=== PATIENT | female | born 1980 | race Caucasian/White ===

== ENCOUNTER → 2017-01-14 | Outpatient (CLI) | payer MEDICAID ==
[2017-01-14 15:46] LABS: Basophils % (A) 0 %; CH 31.2; CHCM 34.5; Eosinophils # (A) 0.1 k/uL (0-0.7); Eosinophils % (A) 1 %; HCT 40.1 % (34.0-46.0); HDW 2.68; HGB 13.3 gm/dL (11.4-16.0); Luc # (Auto) 0.18; Luc % (Auto) 2; Lymphocytes # (A) 1.8 k/uL (1.0-4.8); Lymphocytes % (A) 23 %; MCH 30.2 pg (25.0-35.0); MCHC 33.2 g/dL (31.0-37.0); Monocytes # (A) 0.4 k/uL (0-1.0); Monocytes % (A) 5 %; Neutrophils # (A) 5.4 k/uL (1.3-7.7); Neutrophils % (A) 69 %; RBC 4.41 m/uL (3.80-5.40); RDW 13.3 % (11.5-15.5); WBC 7.8 k/uL (3.8-10.6); WBC (Perox) 8.35
[2017-01-14 18:39] LABS: Erythrocyte Sedimentation Rate 8 mm/hr (0-20)
[2017-01-15 10:32] LABS: T4, Total 6.2 ug/dL (4.5 - 10.9)
== END | disposition home or self-care (01) ==
LOC: LABWHC1 15:25
PROVIDERS: ATTEND Allergy & Immunology
DX: L50.8 Other urticaria (principal)
CPT/HCPCS: 36415; 84436; 84439; 84443; 85025; 85652; 86162; 86376; 86800

== ENCOUNTER → 2017-01-24 | Outpatient (CLI) | payer MEDICAID | END | disposition home or self-care (01) | LOC: LABWHC1 07:58 | PROVIDERS: ATTEND Allergy & Immunology | DX: Z53.9 Procedure and treatment not carried out, unspecified reason (principal) ==

== ENCOUNTER → 2017-01-24 | Outpatient (CLI) | payer MEDICAID ==
--- NOTE | 2017-01-24 08:07 | US ---
EXAMINATION TYPE: US thyroid st tissue head/neck DATE OF EXAM: 01/24/2017 COMPARISON: NONE CLINICAL HISTORY: E04.9 Goiter. Patient stated was told by doctor is in early stage of Vanesa's T hyroiditis; hives x 1 year. GLAND SIZE: Right Lobe: 5.6 x 1.8 x 1.6 cm Overall Parenchyma: homogenous Left Lobe: 4.9 x 1.6 x 1.6 cm Overall Parenchyma: homogeneous Isthmus Thickness: 0.3 cm NODULES RIGHT: # of nodules measured on right: 0 LEFT: # of nodules measured on left: 1 1. 0.8 X 0.3 x 0.3 cm hypoechoic solid nodule at the lower pole with well-defined margins. This no dule is wider than tall and shows no intranodular vascularity. Prior size: no prior US ISTHMUS: # of nodules measured in the isthmus: 0 Bilateral neck scanned, no evidence of lymphadenopathy. IMPRESSION: Single subcentimeter left thyroid nodule in an enlarged thyroid gland. Surveillance is recommended.
[2017-01-25 12:50] LABS: T4, Total 6.6 ug/dL (4.5 - 10.9)
== END | disposition home or self-care (01) ==
LOC: RADUSWWP 07:29
PROVIDERS: ATTEND Allergy & Immunology
DX: E04.1 Nontoxic single thyroid nodule (principal)
CPT/HCPCS: 76536; 84436; 86162

== ENCOUNTER 2017-01-26 19:59 | Emergency (ER) | payer MEDICAID ==
[2017-01-26 20:10] VITALS: BP 125/76; PULSE 103; RESP 20; TEMP 98.5
[2017-01-26] MEDS ORDERED: SULFAMETH-TMP DS STARTER PACK 2 TAB BTL PO STA (20:45)
--- NOTE | 2017-01-26 20:46 | ED ---
Skin/Abscess/FB HPI - General Chief complaint: Skin/Abscess/Foreign Body Stated complaint: Thumb Swelling Time Seen by Provider: 01/26/17 20:19 Source: patient, RN notes reviewed, old records reviewed Mode of arrival: ambulatory Limitations: no limitations - History of Present Illness Initial comments: This is a 36 year old female with left thumb pain and swelling for one week. Patient reports that it started after she went kayaking and had some irritation over the lateral nail bed. Patient states she saw her PCP whom told her to soak her thumb, she reports she has been soaking her thumb, and that a pimple has formed and that it is ready to pop. Patient states that she has not been on any antibiotics. Patient relates she is allergic to penicillin. Denies paresthesias , denies decreased range of mtion of the thumb. - Related Data Home Medications Medication Instructions Recorded Confirmed Cephalexin [Keflex] 500 mg PO Q12HR 01/26/17 01/26/17 Phentermine HCl [Adipex-P] 37.5 mg PO QAM 01/26/17 01/26/17 buPROPion [Wellbutrin] 100 mg PO DAILY 01/26/17 01/26/17 Previous Rx's Medication Instructions Recorded Sulfamethox-Tmp 800-160Mg [Bactrim 1 tab PO Q12HR #14 tab 01/26/17 DS 800-160 mg] Allergies Allergy/AdvReac Type Severity Reaction Status Date / Time Penicillins Allergy Rash/Hives Verified 01/26/17 20:10 Review of Systems ROS Statement: Those systems with pertinent positive or pertinent negative responses have been documented in the HPI. ROS Other: All systems not noted in ROS Statement are negative. Past Medical History Past Medical History: No Reported History History of Any Multi-Drug Resistant Organisms: None Reported Past Surgical History: Section, Orthopedic Surgery Past Psychological History: No Psychological Hx Reported Smoking Status: Never smoker Past Alcohol Use History: None Reported Past Drug Use History: None Reported General Exam - General Exam Comments Initial Comments: Well appaering 36 year old female, no distress. Limitations: no limitations General appearance: alert, in no apparent distress Head exam: Present: atraumatic, normocephalic, normal inspection Eye exam: Present: normal appearance, PERRL, EOMI. Absent: scleral icterus, conjunctival injection, periorbital swelling ENT exam: Present: normal exam, mucous membranes moist Neck exam: Present: normal inspection. Absent: tenderness, meningismus, lymphadenopathy Respiratory exam: Present: normal lung sounds bilaterally. Absent: respiratory distress, wheezes, rales, rhonchi, stridor Cardiovascular Exam: Present: regular rate, normal rhythm, normal heart sounds. Absent: systolic murmur, diastolic murmur, rubs, gallop, clicks GI/Abdominal exam: Present: soft, normal bowel sounds. Absent: distended, tenderness, guarding, rebound, rigid Extremities exam: Present: normal inspection, full ROM, normal capillary refill. Absent: tenderness, pedal edema, joint swelling, calf tenderness Left Hand Wrist exam: Present: erythema (left thumb has paronychia over lateral aspect of the nail. ). Absent: normal inspection Neuro motor exam: Present: wrist extension intact, thumb opposition intact, thumb IP flexion intact, thumb adduction intact, fingers 2-5 abduction intact, other Neurosensory exam: Present: 2-point discrimination Vascular: Present: normal capillary refill Neurological exam: Present: alert, oriented X3, CN II-XII intact Psychiatric exam: Present: normal affect, normal mood Skin exam: Present: warm, dry, intact, normal color. Absent: rash Course Vital Signs 01/26/17 20:07 Temperature 98.5 F Pulse Rate 103 H Respiratory 20 Rate Blood Pressure 125/76 O2 Sat by Pulse 100 Oximetry Procedures - Incision & Drainage Site: hand (left thumb) Size (cm): 1 Anesthetic Used: lidocaine 1% Amount (mLs): 1 I&D Cleaning Method: Iodine Sterile Field Used?: Yes Scalpel Used: #11 I&D Drainage Obtained: Pus, Blood Culture Obtained?: Yes Patient Tolerated Procedure: well, no complications Medical Decision Making - Medical Decision Making This is a 36 year old female with left nail bed pain and swelling for one week. She has been doing warm soaks. Patient states that it has now formed a pimple and is ready to pop. Patient has significant paronycia, no lymphangitis, thumb joint swelling or decreased ROM. Patient was incised and drained, culture obtained. Patient started on bactrim DS and advised to return to ED if any alarming signs or symptoms occur. Disposition Clinical Impression: Paronychia Disposition: HOME SELF-CARE Condition: Good Instructions: Paronychia (ED) Additional Instructions: Patient was to continue to do warm soaks of the thumb. Take antibiotics as directed. Follow-up with a primary care provider or return to the emergency department if any further signs or symptoms that are concerning occur. Prescriptions: Sulfamethox-Tmp 800-160Mg [Bactrim DS 800-160 mg] 1 tab PO Q12HR #14 tab Referrals: Ramin Weston MD [Primary Care Provider] - 1-2 days Time of Disposition: 20:44
--- NOTE | 2017-01-29 03:16 | CDI ---
Documentation Clarification OP Sydnee VACA PA-C, PAC, Please add addendum for HPI and Physical examination and MDM. Thank you, rubio. [employer]. if you have any questions please contact catering and events manager at [phone] [facility]
== END 2017-01-26 20:56 | disposition home or self-care (01) ==
LOC: EC 19:59
DX: L03.012 Cellulitis of left finger (principal); Z88.0 Allergy status to penicillin; Z79.899 Other long term (current) drug therapy
CPT/HCPCS: 10060; 87070; 87077; 87186; 87205; 99284

== ENCOUNTER → 2017-07-08 | Outpatient (CLI) | payer MEDICAID ==
--- NOTE | 2017-07-09 06:48 | US ---
EXAMINATION TYPE: US thyroid st tissue head/neck DATE OF EXAM: 07/08/2017 COMPARISON: Thyroid ultrasound January 24, 2017 CLINICAL HISTORY: E04.1 Thyroid Nodule. F/U previous GLAND SIZE: Right Lobe: 5.3 x 1.7 x 2.7 cm Overall Parenchyma: homogenous Left Lobe: 5.0 x 1.7 x 1.6 cm Overall Parenchyma: homogeneous Isthmus Thickness: 0.4 cm NODULES RIGHT: # of nodules measured on right: 1 1. 0.6 X 0.6 x 0.4 cm hypoechoic solid nodule at the mid pole with poorly defined margins; small ca lcifications present within; This nodule is wider than tall and shows intranodular vascularity. Prior size: Not visualized on previous LEFT: # of nodules measured on left: 1 1. 0.6 X 0.4 x 0.4 cm hypoechoic solid nodule at the lower pole with well-defined margins; This no dule is wider than tall and shows no intranodular vascularity. Prior size: 0.8 x 0.3 x 0.3 cm Bilateral neck scanned, no evidence of lymphadenopathy. Stable nodule left/ New nodule right There is redemonstration of homogeneous thyroid gland that is mildly enlarged in size but stable, sma ll posterior nodule right thyroid lobe on current study was not clearly identified on prior exam. IMPRESSION: Thyroid gland is stable and mildly enlarged in size but homogeneous in echotexture, no new suspicious greater than 1 cm solid or cystic nodules are identified.
== END | disposition home or self-care (01) ==
LOC: RADUSMAIN 17:46
PROVIDERS: ATTEND Allergy & Immunology
DX: E04.9 Nontoxic goiter, unspecified (principal)
CPT/HCPCS: 76536

== ENCOUNTER → 2017-08-13 | Outpatient (CLI) | payer MEDICAID ==
[2017-08-13 17:59] LABS: T4, Free (Free Thyroxine) 0.76 ng/dL (0.78-2.19)
== END | disposition home or self-care (01) ==
LOC: LABWHC1 16:57
PROVIDERS: ATTEND Internal Medicine
DX: E03.9 Hypothyroidism, unspecified (principal)
CPT/HCPCS: 36415; 84439; 84443; 86376

== ENCOUNTER → 2017-10-03 | Outpatient (CLI) | payer MEDICAID ==
[2017-10-03 10:52] LABS: T4, Free (Free Thyroxine) 0.76 ng/dL (0.78-2.19)
[2017-10-03 16:52] LABS: ACTH 12.8 pg/mL (0.00-45.99)
[2017-10-03 16:58] LABS: Thyroid Peroxidase Antibodies 42.9 U/mL (0.0-60.0)
== END | disposition home or self-care (01) ==
LOC: LABWHC1 09:20
PROVIDERS: ATTEND Internal Medicine Endocrinology, Diabetes & Metabolism
DX: E04.2 Nontoxic multinodular goiter (principal); E03.8 Other specified hypothyroidism; R53.83 Other fatigue
CPT/HCPCS: 36415; 82024; 82533; 82607; 84146; 84439; 84443; 86376

== ENCOUNTER → 2017-11-20 | Outpatient (CLI) | payer MEDICAID ==
[2017-11-20 15:41] LABS: T4, Free (Free Thyroxine) 0.87 ng/dL (0.78-2.19)
== END ==
LOC: LABWHC1 14:20
PROVIDERS: ATTEND Internal Medicine Endocrinology, Diabetes & Metabolism
DX: E04.2 Nontoxic multinodular goiter (principal)
CPT/HCPCS: 36415; 84439; 84443

== ENCOUNTER → 2018-03-12 | Outpatient (CLI) | payer MEDICAID | END | disposition home or self-care (01) | LOC: LABWHC1 17:03 | PROVIDERS: ATTEND Internal Medicine Endocrinology, Diabetes & Metabolism | DX: E03.8 Other specified hypothyroidism (principal) | CPT/HCPCS: 36415; 84443 ==

== ENCOUNTER → 2018-07-09 | Outpatient (CLI) | payer MEDICAID ==
--- NOTE | 2018-07-09 10:07 | US ---
EXAMINATION TYPE: US thyroid st tissue head/neck DATE OF EXAM: 07/09/2018 COMPARISON: 07/08/2017 CLINICAL HISTORY: E04.1 Thyroid Nodule. follow up exam GLAND SIZE: Right Lobe: 5.8 x 2.2 x 1.6 cm Overall Parenchyma: homogenous Left Lobe: 5.1 x 1.3 x 1.5 cm Overall Parenchyma: homogeneous Isthmus Thickness: 0.5 cm NODULES RIGHT: # of nodules measured on right: 1 1. 0.6 X 0.6 x 0.4 cm hypoechoic solid nodule at the mid Prior size: 0.6 x 0.6 x 0.4 cm LEFT: # of nodules measured on left: 0 ISTHMUS: # of nodules measured in the isthmus: 0 Bilateral neck scanned, no evidence of lymphadenopathy. IMPRESSION: Nonspecific subcentimeter nodule right thyroid lobe.
== END | disposition home or self-care (01) ==
LOC: RADUSWWP 09:27
PROVIDERS: ATTEND Surgery
DX: E04.1 Nontoxic single thyroid nodule (principal)
CPT/HCPCS: 76536

== ENCOUNTER → 2018-09-08 | Outpatient (CLI) | payer MEDICAID | END | disposition home or self-care (01) | LOC: LABWHC1 08:27 | PROVIDERS: ATTEND Internal Medicine Endocrinology, Diabetes & Metabolism | DX: E03.8 Other specified hypothyroidism (principal) | CPT/HCPCS: 36415; 84443 ==

== ENCOUNTER → 2018-11-17 | Outpatient (CLI) | payer MEDICAID ==
--- NOTE | 2018-11-17 08:04 | MM ---
Reason for exam: screening (asymptomatic). Baseline mammogram. History: Family history of breast cancer in grandmother at age 40 and breast cancer in aunt at age 50. Took hormonal contraceptives for 10 years beginning at age 19. Physical Findings: Nurse did not find any significant physical abnormalities on exam. MG Screening Mammo w CAD Bilateral CC and MLO view(s) were taken. The breast tissue is heterogeneously dense. This may lower the sensitivity of mammography. No suspicious abnormality. These results were verbally communicated with the patient and result sheet given to the patient on 11/17/18. ASSESSMENT: Negative, BI-RAD 1 RECOMMENDATION: Routine screening mammogram of both breasts in 1 year.
== END | disposition home or self-care (01) ==
LOC: RADMAMWWP 06:54
PROVIDERS: ATTEND Obstetrics & Gynecology
DX: Z12.31 Encounter for screening mammogram for malignant neoplasm of breast (principal)
CPT/HCPCS: 77067

== ENCOUNTER → 2019-02-11 | Outpatient (CLI) | payer MEDICAID ==
--- NOTE | 2019-02-11 10:50 | MR ---
EXAMINATION TYPE: MR knee LT wo con DATE OF EXAM: 02/11/2019 COMPARISON: None HISTORY: Left knee pain TECHNIQUE: Multiplanar, multisequence imaging of the left knee is performed without IV contrast. FINDINGS: MEDIAL MENISCUS: Some intrameniscal signal is present without definite tear LATERAL MENISCUS: Anterior and posterior horns are intact without tear. CRUCIATE LIGAMENTS: The anterior and posterior cruciate ligaments are intact and unremarkable. COLLATERAL LIGAMENTS: The medial collateral ligament and lateral collateral ligament complex are inta ct and unremarkable. EXTENSOR MECHANISM: Visualized quadriceps and patellar tendons are intact. EFFUSION: No significant suprapatellar joint effusion. POPLITEAL CYST: No popliteal/bowles cyst. TRICOMPARTMENT SPACES: Joint space loss at the patellofemoral joint CARTILAGE: Grade IV chondromalacia changes are present at the posterior patella BONE MARROW SIGNAL: Subchondral marrow signal changes are present at the medial facet of the patella OTHER: There is some marginal spurring medial compartment. IMPRESSION: Chondromalacia patella, osteoarthritic change.
== END | disposition home or self-care (01) ==
LOC: RADMRIMAIN 08:35
PROVIDERS: ATTEND Orthopaedic Surgery
DX: M17.12 Unilateral primary osteoarthritis, left knee (principal); M22.42 Chondromalacia patellae, left knee

== ENCOUNTER → 2019-03-11 | Outpatient (CLI) | payer MEDICAID | END | disposition home or self-care (01) | LOC: LABWHC1 08:52 | PROVIDERS: ATTEND Internal Medicine Endocrinology, Diabetes & Metabolism | DX: E03.8 Other specified hypothyroidism (principal) | CPT/HCPCS: 36415; 84443; 86376 ==

== ENCOUNTER → 2019-09-14 | Outpatient (CLI) | payer MEDICAID ==
[2019-09-14 15:32] LABS: T4, Free (Free Thyroxine) 1.2 ng/dL (0.80-1.80)
== END | disposition home or self-care (01) ==
LOC: LABWHC1 08:13
PROVIDERS: ATTEND Internal Medicine Endocrinology, Diabetes & Metabolism
DX: E03.8 Other specified hypothyroidism (principal); E04.2 Nontoxic multinodular goiter
CPT/HCPCS: 36415; 84439; 84443; 86376

== ENCOUNTER → 2020-03-15 | Outpatient (CLI) | payer MEDICAID ==
--- NOTE | 2020-03-15 09:16 | US ---
EXAMINATION TYPE: US thyroid st tissue head/neck DATE OF EXAM: 03/15/2020 COMPARISON: 07/09/2018 CLINICAL HISTORY: 39-year-old female E03.8 specified hypothyroidism. TECHNIQUE: Multiple sonographic images of the thyroid gland are obtained. FINDINGS: GLAND SIZE: Right Lobe: 5.3 x 1.5 x 1.5 cm Overall Parenchyma: homogenous Left Lobe: 5.8 x 1.7 x 1.9 cm Overall Parenchyma: homogeneous Isthmus Thickness: 0.3 cm NODULES RIGHT: # of nodules measured on right: 1 1. 0.4 x 0.5 x 0.4cm hypoechoic solid nodule at the posterior lower pole. This nodule is as wide as it is tall and shows no intranodular vascularity. Prior size: 0.6 x 0.5 x 0.6 cm LEFT: # of nodules measured on left: 0 ISTHMUS: # of nodules measured in the isthmus: 0 Bilateral neck scanned, no evidence of lymphadenopathy. IMPRESSION: 1. Thyromegaly with measurements as above. 2. Solitary nodule posteriorly in the right lobe measuring 5 mm, unchanged to slightly smaller from 6 mm, previously.
[2020-03-15 10:22] LABS: T4, Free (Free Thyroxine) 1.14 ng/dL (0.78-2.19)
== END | disposition home or self-care (01) ==
LOC: RADUSWWP 08:25
PROVIDERS: ATTEND Internal Medicine Endocrinology, Diabetes & Metabolism
DX: E01.0 Iodine-deficiency related diffuse (endemic) goiter (principal)
CPT/HCPCS: 76536; 84439; 84443

== ENCOUNTER → 2020-10-03 | Outpatient (CLI) | payer MEDICAID ==
[2020-10-03 15:05] LABS: Basophils # (A) 0.02 X 10*3/uL (0.00-0.10); Basophils % (A) 0.3 %; Eosinophils # (A) 0.15 X 10*3/uL (0.04-0.35); Eosinophils % (A) 2.1 %; HCT 40.3 % (37.2-46.3); HGB 13.2 g/dL (12.0-15.0); Lymphocytes # (A) 1.68 X 10*3/uL (0.90-5.00); MCH 28.1 pg (27.0-32.0); MCHC 32.8 g/dL (32.0-37.0); MCV 85.7 fL (80.0-97.0); Mean Platelet Volume 10.2 fL (9.5-12.2); Monocytes # (A) 0.53 X 10*3/uL (0.20-1.00); Monocytes % (A) 7.3 %; Neutrophils # (A) 4.88 X 10*3/uL (1.80-7.70); Neutrophils % (A) 66.8 %; Platelet Count 387 X 10*3/uL (140-440); RDW 12.7 % (11.5-14.5)
[2020-10-03 18:47] LABS: African American GFR (CKD) 105.4 (60.0-200.0); Albumin 4.4 g/dL (3.80-4.90); Albumin/Globulin Ratio 1.83 (1.60-3.17); Anion Gap 5.2 mmol/L (4.00-12.00); BUN/Creat Ratio 16.25 Ratio (12.00-20.00); Calcium 8.7 mg/dL (8.7-10.3); Carbon Dioxide 25.8 mmol/L (21.6-31.8); Chol/HDL Ratio 3.61; Globulin 2.4 g/dL (1.6-3.3); Non-African American GFR(CKD) 90.9 (60.0-200.0); Potassium 4.2 mmol/L (3.5-5.5); Total Bilirubin 0.7 mg/dL (0.3-1.2); Total Protein 6.8 g/dL (6.2-8.2)
== END | disposition home or self-care (01) ==
LOC: LABWHC1 08:22
PROVIDERS: ATTEND Physician Assistant
DX: Z00.01 Encounter for general adult medical examination with abnormal findings (principal); Z13.220 Encounter for screening for lipoid disorders; E55.9 Vitamin D deficiency, unspecified; E04.1 Nontoxic single thyroid nodule
CPT/HCPCS: 36415; 80053; 80061; 82306; 85025

== ENCOUNTER → 2020-12-12 | Outpatient (CLI) | payer MEDICAID | END | disposition home or self-care (01) | LOC: LABWHC1 09:05 | PROVIDERS: ATTEND Internal Medicine Endocrinology, Diabetes & Metabolism | DX: E03.8 Other specified hypothyroidism (principal); E55.9 Vitamin D deficiency, unspecified | CPT/HCPCS: 36415; 82306; 82607; 84439; 84443; 86376 ==

== ENCOUNTER → 2021-03-02 | Outpatient (CLI) | payer MEDICAID ==
[2021-03-02 11:32] LABS: T4, Free (Free Thyroxine) 0.97 ng/dL (0.78-2.19)
--- NOTE | 2021-03-02 12:58 | US ---
EXAMINATION TYPE: US thyroid st tissue head/neck DATE OF EXAM: 03/02/2021 COMPARISON: 03/15/20 CLINICAL HISTORY: 40-year-old female E04.2 Nontoxic multinodular goiter. GLAND SIZE: Right Lobe: 4.8x1.8x2.1 cm Overall Parenchyma: homogenous Left Lobe: 4.3 x 1.7 x 1.6 cm cm Overall Parenchyma: homogeneous Isthmus Thickness: 0.5 cm NODULES RIGHT: # of nodules measured on right: 2 1. 0.4 X 0.2 x 0.3 cm, mid medial, benign cyst. Prior size: No previous 2. 0.6 X 0.6 x 0.5 cm, mid mid, solid or almost completely solid, hypoechoic nodule, which is as wi de as it is tall with ill-defined margins, without echogenic foci. Prior size: 0.4 x 0.5 x 0.4 cm LEFT: # of nodules measured on left: 0 ISTHMUS: # of nodules measured in the isthmus: 0 Bilateral neck scanned, no evidence of lymphadenopathy. IMPRESSION: A single solid TR4 nodule in the right lobe measuring 6 x 6 mm (versus 5 x 4 mm, previously). Continu ed follow-up as clinically indicated.
--- NOTE | 2021-03-03 10:56 | MM ---
Reason for exam: screening (asymptomatic). Last mammogram was performed 2 years and 3 months ago. History: Family history of breast cancer in paternal grandmother at age 40 and breast cancer in paternal aunt at age 50. Took hormonal contraceptives for 11 years beginning at age 19. Physical Findings: A clinical breast exam by your physician is recommended on an annual basis and results should be correlated with mammographic findings. MG 3D Screening Mammo W/Cad Bilateral CC and MLO view(s) were taken. Prior study comparison: November 17, 2018, bilateral MG screening mammo w CAD. The breast tissue is extremely dense which could obscure a lesion on mammography. Benign appearing bilateral calcifications. No significant changes when compared with prior studies. ASSESSMENT: Benign, BI-RAD 2 RECOMMENDATION: Routine screening mammogram of both breasts in 1 year.
== END | disposition home or self-care (01) ==
LOC: RADUSWWP 09:26
PROVIDERS: ATTEND Pediatrics
DX: E04.2 Nontoxic multinodular goiter (principal); Z12.31 Encounter for screening mammogram for malignant neoplasm of breast; Z80.3 Family history of malignant neoplasm of breast
CPT/HCPCS: 76536; 77063; 77067; 82306; 82607; 84439; 84443

== ENCOUNTER → 2021-08-28 | Outpatient (CLI) | payer MEDICAID ==
--- NOTE | 2021-08-28 08:37 | XR ---
Lumbosacral spine HISTORY: M 52.9, remote history of trauma 5 views lumbosacral spine Lumbar vertebral bodies show preserved height and bone mineralization. There is a slight spinal curva ture. No evident spondylolysis or spondylolisthesis. Multilevel spondylosis is present. There is some loss of disc height noted L5-S1 greater than L4-5. IMPRESSION: Degenerative disc disease. Mild spinal curvature. No fracture or subluxation.
== END | disposition home or self-care (01) ==
LOC: RADXRMAIN 07:49
PROVIDERS: ATTEND Physician Assistant
DX: M51.36 Other intervertebral disc degeneration, lumbar region (principal); M43.8X6 Other specified deforming dorsopathies, lumbar region
CPT/HCPCS: 72110

== ENCOUNTER → 2021-11-17 | Outpatient (CLI) | payer MEDICAID ==
[2021-11-17 14:22] LABS: Basophils # (A) 0.02 X 10*3/uL (0.00-0.10); Basophils % (A) 0.2 %; Eosinophils # (A) 0.07 X 10*3/uL (0.04-0.35); Eosinophils % (A) 0.8 %; HCT 39.6 % (37.2-46.3); HGB 12.6 g/dL (12.0-15.0); Immature Grans, Automated 0.5 %; Lymphocytes # (A) 1.62 X 10*3/uL (0.90-5.00); Lymphocytes % (A) 19.6 %; MCH 27.9 pg (27.0-32.0); MCHC 31.8 g/dL (32.0-37.0); MCV 87.6 fL (80.0-97.0); Mean Platelet Volume 10.4 fL (9.5-12.2); Monocytes # (A) 0.49 X 10*3/uL (0.20-1.00); Monocytes % (A) 5.9 %; NRBC Per 100 WBC 0 /100 WBCS (0.0-0.0); Neutrophils # (A) 6.02 X 10*3/uL (1.80-7.70); Platelet Count 358 X 10*3/uL (140-440); RBC 4.52 X 10*6/uL (4.10-5.20); WBC 8.26 X 10*3/uL (4.50-10.00)
[2021-11-17 15:01] LABS: ALT 19 U/L (8-44); AST 14 U/L (13-35); African American GFR (CKD) 105.8 (60.0-200.0); Albumin 4.1 g/dL (3.8-4.9); Albumin/Globulin Ratio 1.41 (1.60-3.17); Alkaline Phosphatase 94 U/L (41-126); BUN/Creat Ratio 12.99 Ratio (12.00-20.00); Blood Urea Nitrogen 10.3 mg/dL (9.0-27.0); Calcium 9.2 mg/dL (8.7-10.3); Carbon Dioxide 24.5 mmol/L (20.0-27.5); Chloride 102 mmol/L (96-109); Chol/HDL Ratio 4.31 Ratio; Globulin 2.9 g/dL (1.6-3.3); Glucose 95 mg/dL (70-110); LDL Cholesterol,Calculated 144.7 mg/dL (0.0-131.0); Non-African American GFR(CKD) 91.3 (60.0-200.0); Potassium 4.5 mmol/L (3.5-5.5); Sodium 138 mmol/L (135-145)
== END | disposition home or self-care (01) ==
LOC: LABWHC1 08:30
PROVIDERS: ATTEND Internal Medicine Endocrinology, Diabetes & Metabolism
DX: Z00.01 Encounter for general adult medical examination with abnormal findings (principal); Z13.220 Encounter for screening for lipoid disorders; E55.9 Vitamin D deficiency, unspecified; E04.2 Nontoxic multinodular goiter
CPT/HCPCS: 36415; 80053; 80061; 82306; 84439; 84443; 85025

== ENCOUNTER → 2022-10-26 | Outpatient (CLI) | payer OTHER ==
[2022-10-26 16:50] LABS: T4, Free (Free Thyroxine) 1.18 ng/dL (0.800-1.800)
--- NOTE | 2022-10-29 08:49 | MM ---
Reason for Exam: Screening (asymptomatic). Last mammogram was performed 1 year(s) and 8 month(s) ago. Patient History: Menarche at age 10. First Full-Term at age 26. Hormonal Contraceptives for 11 years from age 19 until age 29. Paternal grandmother had breast cancer, age 40. Paternal aunt had breast cancer, age 50. Mother had ovarian cancer, age 60. Last menstrual period: 10/05/2022 Risk Values: Gaby 5 year model risk: 0.9%. NCI Lifetime model risk: 10.7%. Prior Study Comparison: 11/17/2018 Bilateral Screening Mammogram, [facility]. 03/02/2021 Bilateral Screening Mammogram, [facility]. Tissue Density: The breast tissue is extremely dense which could obscure a lesion on mammography. Findings: Analyzed By CAD. Benign-appearing bilateral axillary lymph nodes are present. There is no suspicious group of microcalcifications or new suspicious mass in either breast. Overall Assessment: Negative, BI-RAD 1 Management: Screening Mammogram of both breasts in 1 year. Some advise bilateral breast ultrasound surveillance in patients with background extremely dense tissue. Patient should continue monthly self-breast exams. A clinical breast exam by your physician is recommended on an annual basis. This exam should not preclude additional follow-up of suspicious palpable abnormalities. Note on Gaby scores and lifetime risk: 1. A Gaby score greater than 3% is considered moderate risk. If this is the case, consider specialist referral to assess eligibility for a risk reducing agent. 2. If overall lifetime risk for the development of breast cancer is 20% or higher, the patient may qualify for future screening with alternating mammogram and breast MRI. Electronically signed and approved by: Truman Covarrubias M.D.
== END | disposition home or self-care (01) ==
LOC: RADMAMWWP 07:13
PROVIDERS: ATTEND Pediatrics
DX: Z12.31 Encounter for screening mammogram for malignant neoplasm of breast (principal); Z80.3 Family history of malignant neoplasm of breast
CPT/HCPCS: 77063; 77067; 84439; 84443

== ENCOUNTER → 2022-10-26 | Outpatient (CLI) | payer OTHER ==
--- NOTE | 2022-10-26 08:26 | US ---
EXAMINATION TYPE: US thyroid st tissue head/neck DATE OF EXAM: 10/26/2022 COMPARISON: 03/02/2021 CLINICAL INDICATION: Female, 42 years old with history of E04.2; thyroid nodule GLAND SIZE: Right Lobe: 4.7x1.4x1.6 cm Overall Parenchyma: homogenous Left Lobe: 4.8x1.5x1.7 cm Overall Parenchyma: homogeneous Isthmus Thickness: 0.3 cm NODULES RIGHT: # of nodules measured on right: 1 1. 0.6 X 0.3 x 0.5 cm, mid mid, solid or almost completely solid, hypoechoic nodule, which is talle r than wide, with ill-defined margins, without echogenic foci. Prior size: 0.5 x 0.6 x 0.6 cm measured area is ill defined LEFT: # of nodules measured on left: 0 Bilateral neck scanned, no evidence of lymphadenopathy. Homogeneous normal-sized thyroid with stable 6 mm right thyroid nodule. IMPRESSION: As above. No significant new or enlarging nodules.
== END | disposition home or self-care (01) ==
LOC: RADUSWWP 07:15
PROVIDERS: ATTEND Internal Medicine Endocrinology, Diabetes & Metabolism
DX: E04.2 Nontoxic multinodular goiter (principal)
CPT/HCPCS: 76536

== ENCOUNTER → 2024-05-25 | Outpatient (CLI) | payer BC ==
--- NOTE | 2024-05-25 16:10 | MM ---
Reason for Exam: Screening (asymptomatic). Last mammogram was performed 1 year(s) and 6 month(s) ago. Patient History: Menarche at age 10. First Full-Term at age 26. Hormonal Contraceptives for 11 years from age 19 until age 29. Paternal grandmother had breast cancer, age 40. Paternal aunt had breast cancer, age 50. Mother had ovarian cancer, age 60. Last menstrual period: 05/18/2024 Risk Values: Gaby 5 year model risk: 0.9%. NCI Lifetime model risk: 10.5%. Prior Study Comparison: 11/17/2018 Bilateral Screening Mammogram, [facility]. 03/02/2021 Bilateral Screening Mammogram, [facility]. 10/26/2022 Bilateral MG screening mammo w CAD, [facility]. Tissue Density: The breasts are extremely dense, which lowers the sensitivity of mammography. Findings: Analyzed By CAD. The pattern is symmetrical. No significant interval change. No suspicious groups of microcalcifications, spiculated or lobular masses, architectural distortion or other secondary signs of malignancy are mammographically apparent. Overall Assessment: Benign, BI-RAD 2 Management: Screening Mammogram of both breasts in 1 year. A negative mammogram report should not preclude additional follow up of suspicious palpable abnormalities. Patient should continue monthly self breast exam. A clinical breast exam by your physician is recommended on an annual basis and results should be correlated with mammographic findings. Note on Gaby scores and lifetime risk: 1. A Gaby score greater than 3% is considered moderate risk. If this is the case, consider specialist referral to assess eligibility for a risk reducing agent. 2. If overall lifetime risk for the development of breast cancer is 20% or higher, the patient may qualify for future screening with alternating mammogram and breast MRI. [facility], , 05/25/2024 4:07 PM. Electronically signed and approved by: Raad Beck D.O. Radiologis
== END | disposition home or self-care (01) ==
LOC: RADMAMWWP 06:54
PROVIDERS: ATTEND Obstetrics & Gynecology
DX: Z12.31 Encounter for screening mammogram for malignant neoplasm of breast (principal); Z80.3 Family history of malignant neoplasm of breast; R92.343 Mammographic extreme density, bilateral breasts
CPT/HCPCS: 77063; 77067

== ENCOUNTER → 2024-08-28 | Outpatient (CLI) | payer BC ==
[2024-08-28 10:50] LABS: Basophils # (A) 0.03 X 10*3/uL (0.00-0.10); Basophils % (A) 0.4 %; Eosinophils # (A) 0.08 X 10*3/uL (0.04-0.35); Eosinophils % (A) 1.1 %; HCT 38.4 % (37.2-46.3); HGB 11.8 g/dL (12.0-15.0); Lymphocytes # (A) 1.85 X 10*3/uL (0.90-5.00); Lymphocytes % (A) 24.9 %; MCH 25.3 pg (27.0-32.0); MCHC 30.7 g/dL (32.0-37.0); MCV 82.4 FL (80.0-97.0); Mean Platelet Volume 9.7 FL (9.5-12.2); Monocytes # (A) 0.55 X 10*3/uL (0.20-1.00); Monocytes % (A) 7.4 %; NRBC Per 100 WBC 0 X 10*3/uL (0.00-0.01); Neutrophils % (A) 65.8 %; Platelet Count 429 X 10*3/uL (140-440); RBC 4.66 X 10*6/uL (4.10-5.20); RDW 12.6 % (11.5-14.5); WBC 7.44 X 10*3/uL (4.50-10.00)
[2024-08-28 11:22] LABS: Blood Urea Nitrogen 12.5 mg/dL (9.0-27.0); Carbon Dioxide 26.3 mmol/L (21.6-31.8); Chloride 103 mmol/L (96-109); Glucose 101 mg/dL (70-110); Potassium 4.6 mmol/L (3.5-5.5); Sodium 138 mmol/L (135-145)
== END | disposition home or self-care (01) ==
LOC: LABWHC1 07:37
PROVIDERS: ATTEND Obstetrics & Gynecology
DX: Z01.818 Encounter for other preprocedural examination (principal)
CPT/HCPCS: 36415; 80051; 82565; 82947; 84520; 85025; 86850; 86900; 86901; 87086

== ENCOUNTER 2024-09-07 05:36 | Day surgery (SDC) | payer BC ==
[2024-09-03 13:13] VITALS: BMI 36.0
--- NOTE | 2024-09-04 08:21 | HP ---
HISTORY AND PHYSICAL DATE OF SURGERY: 09/07/2024. HISTORY OF PRESENT ILLNESS: The patient is a 44-year-old 2, para 2-0-0-2, who presents to the office with complaints of significant dysfunctional uterine bleeding despite having undergone a Marya endometrial ablation a little over 1 year ago. Her bleeding has become interruptive of her lifestyle and she has requested definitive therapy, specifically hysterectomy. She carries a history of 2 previous sections and examination that bears out of da Marlin approaches the most indicated. PAST MEDICAL HISTORY: Significant for hypothyroidism as well as Raynaud syndrome. SURGICAL HISTORY: Significant for section on 2 separate occasions and then hysteroscopy with Marya endometrial ablation in May of 2023. She additionally had orthopedic knee surgeries on her left knee in the early . There is no history of any anesthetic concerns. OBSTETRICAL HISTORY: 2, para 2-0-0-2 with 2 term sections without complications. GYNECOLOGIC HISTORY: Unremarkable except as noted in history of present illness. FAMILY HISTORY: Noncontributory. SOCIAL HISTORY: The patient is and a nonsmoker. She denies any significant alcohol or any other social concerns. CURRENT MEDICATIONS: Include: 1. Amlodipine 5 mg daily. 2. Claritin 10 mg daily. 3. Levothyroxine 50 mcg daily. 4. Omeprazole 20 mg daily. ALLERGIES: Penicillin caused a rash and then she otherwise has only seasonal allergies. REVIEW OF SYSTEMS: Confined to history of present illness. PHYSICAL EXAMINATION: VITAL SIGNS: Stable. The patient is afebrile. GENERAL: This is a well-developed, well-nourished white female, in no acute distress. HEART: Regular rhythm and rate without murmur. LUNGS: Clear to auscultation bilaterally in all khan. ABDOMEN: Nondistended, soft, nontender without any palpable masses, hepatosplenomegaly, or hernias. EXTREMITIES: Without any cyanosis, clubbing, or edema, and are nontender to palpation bilaterally. PELVIC: Demonstrates normal external genitalia and BUS with normal vaginal mucosa and cervix. There is no cervical motion tenderness. Uterus approximately 5 weeks in size, slightly retroverted, mobile, nontender, normal in shape. The adnexa are normal and nontender without mass bilaterally. ASSESSMENT AND PLAN:: Dysfunctional uterine bleeding, failed endometrial ablation. The patient has requested definitive therapy with hysterectomy. We will plan for da Marlin robotically assisted laparoscopic hysterectomy with bilateral salpingectomy and diagnostic cystoscopy. The risks and complications of these procedures have been thoroughly discussed including the risks for bleeding, bleeding requiring transfusion, infection, and injury to local structures to specifically include the bowel, bladder, and ureters. Special attention was given to the bladder given her history of 2 previous sections. We additionally discussed the injuries unique to da Marlin surgery including thermal injury and vaginal cuff dehiscence. She has understood all these concerns and has agreed to proceed. MMODL / IJN: [id number] /
[~2024-09-07 05:36] MED LIST: HYDROmorphone 0.5 MG/0.5 ML SYRINGE IVP PRN; LIDOCAINE 1% (10MG/ML) FOR IV START INTRADERMA PRN
[2024-09-07] MEDS: MIDAZOLAM 2 MG/2 ML VIAL IV ONE (06:59)
[2024-09-07] MEDS: LACTATED RINGERS 1,000 ML IV SCH ×2 (07:02→12:18)
[2024-09-07] MEDS: ONDANSETRON 4 MG/2 ML VIAL IVP ONE (07:03)
[2024-09-07] MEDS: DEXAMETHASONE SOD PHOSPHATE 4 MG/ML 1 ML VIAL IV ONE (07:03)
[2024-09-07] MEDS: IV FLUID CONTINUATION 1,000 ML IV ONE (07:09)
[2024-09-07] MEDS: diphenhydrAMINE 50 MG/ML 1 ML VIAL IVP STA (07:22)
[2024-09-07] MEDS ORDERED: PROPOFOL 10 MG/ML 20 ML VIAL IV ONE (07:25)
[2024-09-07] MEDS ORDERED: ROCURONIUM 10 MG/ML (5 ML VIAL) IV ONE (07:25)
[2024-09-07] MEDS ORDERED: LIDOCAINE 1% INJ 10MG/ML (20 ML MDV) ONE (07:25)
[2024-09-07] MEDS ORDERED: NEOSTIGMINE 1 MG/ML 10 ML VIAL ONE (07:25)
[2024-09-07] MEDS ORDERED: MIDAZOLAM 2 MG/2 ML VIAL ONE (07:25)
[2024-09-07] MEDS ORDERED: SUCCINYLCHOLINE CHLORIDE 200 MG/10 ML VIAL IV ONE (07:25)
[2024-09-07] MEDS ORDERED: MORPHINE SULFATE (PF) 0.3 MG/0.3 ML SYR ONE (07:25)
[2024-09-07] MEDS ORDERED: HYDROmorphone (PF) 1 MG/ML ONE (07:25)
[2024-09-07] MEDS ORDERED: GLYCOPYRROLATE 0.2 MG/ML 2 ML VIAL ONE (07:25)
[2024-09-07] MEDS ORDERED: fentaNYL (PF) 50 MCG/ML 2 ML AMP ONE (07:25)
[2024-09-07] MEDS: ceFAZolin 2 GM in DEXTROSE 5% IN WATER 50 ML IVPB PRN (07:30)
[2024-09-07] MEDS: BUPIVACAINE (PF) 0.25% 30 ML VIAL SQ ONE (08:10)
[2024-09-07] MEDS: LACTATED RINGERS 1,000 ML IV ONE (08:47)
[2024-09-07] MEDS ORDERED: ACETAMINOPHEN TAB 325 MG TAB PO PRN (09:10)
[2024-09-07] MEDS ORDERED: diphenhydrAMINE 25 MG CAP PO PRN (09:10)
[2024-09-07] MEDS ORDERED: SIMETHICONE 80 MG CHEWABLE PO PRN (09:10)
--- NOTE | 2024-09-07 09:21 | P.OP ---
Date of Procedure: 09/07/24 Preoperative Diagnosis: #1. Dysfunctional uterine bleeding #2. Failed endometrial ablation Postoperative Diagnosis: Same plus #3. Pelvic adhesive disease Procedure(s) Performed: #1. Da Marlin robotically assisted laparoscopic hysterectomy with bilateral salpingectomy #2. Moderate lysis of adhesions #3. Diagnostic cystoscopy Anesthesia: AZRA Surgeon: Paul Dangelo Position Classifier #1: Laila Guadalupe Estimated Blood Loss (ml): 20 IV fluids (ml): 1,000 Urine output (ml): 50 Pathology: other (Uterus and bilateral fallopian tubes) Condition: stable Disposition: PACU Operative Findings: Intraoperatively, there was a moderate amount of pelvic adhesive disease including omental adhesions to the anterior abdominal wall and to the left adnexal region which were lysed sharply. The bladder was densely adherent to the anterior uterus to near the fundus. The uterus had a roughly 1 cm anterior fundal fibroid present. The fallopian tubes had evidence of previous tubal ligation and the left fallopian tube was removed in 2 segments. Clear urine was seen throughout the case. Following the hysterectomy, the bladder was noted to be intact both from a cystoscopic and laparoscopic perspective. The bilateral ureters were noted to be peristalsing with ureteral jets seen. Description of Procedure: The patient was prepped and draped in usual fashion after general endotracheal anesthesia was administered by the anesthesiologist. A weighted speculum was placed in the anterior lip of the cervix grasped with a single-tooth tenaculum. Serial dilation was carried out to admit a Vcare uterine manipulation device with a medium cup which was affixed to the cervix in standard fashion. The bladder was catheterized with a Mallory catheter. Attention was turned to the abdomen where a site was selected approximately 2 to 3 cm above the umbilicus in the midline where an 8 mm incision was made in the transverse plane along insertion of 8 mm da Marlin optical port under direct visualization without difficulty. The findings are as noted above in the pelvis. A site was selected approximately 10 to 12 cm lateral and approximately 4 cm inferiorly in the right lower quadrant where another 8 mm incision was made the transverse plane allowing insertion of an 8 mm da Marlin trocar under direct visitation without difficulty. A mirroring trocar was placed in the left lower quadrant. An help desk assistant port was placed in the left upper quadrant between the optical incision in the left lower quadrant incision and approximately 4 to 5 cm above the optical port. The robot was then docked to the patient with a Maryland bipolar cautery forceps in the left arm and a monopolar cautery scissors in the right arm. I then presented to the console and proceeded to take down the omental adhesions to the anterior abdominal wall and the left adnexal region sharply. Some of the anterior bladder adhesions were freed in order to access the fallopian tubes. The left fimbria was noted to be separate from the remainder of the tube and it was elevated and incised and removed separately. The left fallopian tube was then elevated from the underlying ovary and divided to the cornua of the uterus. The utero-ovarian ligament and round ligament were cauterized and cut with the Maryland followed by the monopolar cautery scissors. Hemostasis was excellent throughout. Careful dissection of the bladder flap was then undertaken to begin to remove it distally. Some of the blood vessels were identified and cauterized with the [place] and then cut with the scissors. Attention was turned to the right side where the fallopian tube was elevated from the underlying tissues and removed to the cornu. The utero-ovarian ligament was then cauterized and divided through the round ligament and the bladder peritoneum further developed from this side which was less densely adherent. After significant amount of sharp dissection with the monopolar cautery scissors, the bladder was felt to have been reflected distally enough in the uterine vasculature was thoroughly cauterized with the Maryland bipolar cautery forceps and then cut with the scissors. The vaginal cup could then be identified. The anterior vagina was opened sharply with the with the monopolar cautery scissors and the dissection carried around circumferentially to free the uterus which was then removed through the vagina. The scissors were replaced with a laparoscopic suturing device and a stitch of 0 STRATAFIX was passed into the abdomen the stitch was utilized to close the vaginal cuff from the right margin to the left margin in standard fashion. Hemostasis was excellent. Irrigation was carried out and there was no ongoing bleeding. I then returned to the patient and remove the Mallory catheter, placed a diagnostic cystoscope and filled the bladder with sterile water. There was no evidence of any damage to the dome of the bladder either cystoscopically or laparoscopically. The ureteral Helex were identified and seen peristalsing with ureteral jets bilaterally. All instrumentation was then removed and the Mallory catheter was replaced. The port sites were closed with interrupted subcuticular stitches of 4-0 Vicryl followed by half-inch Steri-Strips placed with Mastisol. The 4 incisions were injected with a total of 10 mL of quarter percent Marcaine without epinephrine. Estimated blood loss for the case was approximately 20 mL. There were no complications. All sponge, instrument, and needle counts were correct. The patient tolerated the procedure well and proceeded to the recovery room in stable condition.
[2024-09-07] MEDS: diphenhydrAMINE 50 MG/ML 1 ML VIAL IVP PRN (09:58)
[2024-09-07] MEDS: SCOPOLAMINE 1 MG/72 HR PATCH TRANSDERM ONE (10:58)
[2024-09-07] MEDS: droPERidol 2.5 MG/ML VIAL IVP ONE (11:13)
[2024-09-07] MEDS: METOCLOPRAMIDE 5 MG/ML 2 ML VIAL IVP PRN (13:47)
[2024-09-07] MEDS: KETOROLAC 15 MG/ML 1 ML VIAL IVP PRN (15:32)
[2024-09-07] MEDS: ONDANSETRON 4 MG/2 ML VIAL IVP PRN (20:28)
[2024-09-07] MEDS: SENNOSIDES-DOCUSATE SODIUM 1 EACH TAB PO SCH (22:02)
[2024-09-08 05:56] LABS: Basophils # (A) 0.03 10*3/uL (0.00-0.10); Basophils % (A) 0.2 %; Eosinophils # (A) 0.01 10*3/uL (0.04-0.35); Eosinophils % (A) 0.1 %; HCT 31.7 % (37.2-46.3); HGB 10.3 g/dL (12.0-15.0); Lymphocytes # (A) 2.35 10*3/uL (0.90-5.00); Lymphocytes % (A) 16.4 %; MCH 26.4 pg (27.0-32.0); MCHC 32.5 g/dL (32.0-37.0); MCV 81.3 fL (80.0-97.0); Mean Platelet Volume 9.4 fL (9.5-12.2); Monocytes # (A) 0.95 10*3/uL (0.20-1.00); Monocytes % (A) 6.6 %; Neutrophils % (A) 76.4 %; Platelet Count 333 10*3/uL (140-440); RDW 13.1 % (11.5-14.5); WBC 14.29 10*3/uL (4.50-10.00)
[2024-09-08 08:08] VITALS: BP 105/68; PULSE 88; RESP 18; TEMP 99.6
--- NOTE | 2024-09-08 08:36 | P.PN ---
Progress Note - Text Progress Note Date: 09/08/24 (716`) Anesthesia Postop day 1 Subjective: Status Post robotic hysterectomy with Duramorph. Patient seen and examined. Doing well without complaint. VAS 1 out of 10. Mild nausea yesterday now resolved. Mild pruritus. Denies fever. Gross lower extremity strength intact. Without apparent anesthetic complications. Objective: Vital signs reviewed Heart: Regular Rate Lungs: Good chest excursion Abdomen: Appears nondistended Assessment: Status post robotic hysterectomy with Duramorph postop day 1 Plan: 1. Continue current care with your medical management. Anticipated end to the duration of the Duramorph around surgery time today. You may see increased pain needs around this time. 2. This note was dictated using [employer] software. Please be advised there is a potential for misspellings or errors in dental assistant teacher.
--- NOTE | 2024-09-08 08:51 | P.DS ---
Providers Expected date of discharge: 09/08/24 Attending physician: Paul Dangelo Primary care physician: Ramin Weston - Discharge Diagnosis(es) (1) Dysfunctional uterine bleeding Current Visit: Yes Status: Acute (2) History of endometrial ablation Current Visit: Yes Status: Acute Hospital Course: Patient is a 44-year-old 2 para 2-0-0-2 who presents to the office with history of Marya endometrial ablation within the last year which has failed and the patient continues to have fairly significant dysfunctional uterine bleeding which is interruptive of her lifestyle. She has requested definitive therapy with hysterectomy. Examination dictated that she undergo da Marlin approach. She was taken to the operating room where she underwent da Marlin robotically assisted laparoscopic hysterectomy with bilateral salpingectomy as well as fairly significant pelvic adhesiolysis with significant adhesions of both from the omentum into the left adnexal region and from the bladder to the anterior uterus. These were manage intraoperatively without difficulty. The procedures were otherwise entirely uncomplicated. Her postoperative course has been unremarkable with vital signs remaining stable and her temperature was afebrile throughout. She was deemed stable for discharge on the morning of postoperative day #1 and was discharged to home to follow-up in the office in 2 weeks for incision checks and recheck and 8 weeks routinely. Discharge instructions included calling for any significantly increased bleeding abdominal pain, urinary complaints, GI complaints, fever, or anything else that concerned her. She was additionally instructed to have nothing in the vagina for at least 8 weeks time to include intercourse. She understood her instructions and agrees to follow-up as noted above. Discharge medications included any normal home medications as well as [id number] analgesic pain medications. She was provided with a prescription for oxycodone 5 mg, 1-2 p.o. every 6 hours as needed pain, #20 dispensed with no refills. Discharge hemoglobin and hematocrit were 10.3 and 31.7 respectively. Procedures: 1. Da Marlin robotically assisted laparoscopic hysterectomy with bilateral salpingectomy #2. Moderate to extensive pelvic adhesiolysis #3. Diagnostic cystoscopy Patient Condition at Discharge: Stable Plan - Discharge Summary Discharge Rx Participant: Yes New Discharge Prescriptions: No Action Levothyroxine Sodium [Synthroid] 50 mcg PO DAILY Loratadine [Claritin] 10 mg PO DAILY Omeprazole 20 mg PO DAILY Discharge Medication List Levothyroxine Sodium [Synthroid] 50 mcg PO DAILY 09/03/24 [History] Loratadine [Claritin] 10 mg PO DAILY 09/03/24 [History] Omeprazole 20 mg PO DAILY 09/03/24 [History] Follow up Appointment(s)/Referral(s): Paul Dangelo MD [STAFF PHYSICIAN] - 2 Weeks Discharge Disposition: HOME SELF-CARE
[2024-09-08] MEDS: IBUPROFEN 600 MG TAB PO PRN (09:05)
--- NOTE | 2024-09-10 18:37 | P.ANPRN ---
Procedure Note - Anesthesia - Epidural/Spinal Spinal Time Out Performed: Yes Date of Procedure: 09/07/24 Procedure Start Time: 06:58 Procedure Stop Time: 07:01 Location of Patient: PreOp Indication: Acute Post-Operative Pain Sedation Type: Sedate with meaningful contact maintained Preparation: Sterile Prep Position: Sitting Needle Guage: 25 Blood Aspirated: No Pain Paresthesia on Injection Noted: No Events: Uneventful and Well Tolerated (duramorph 300 mics plus fetanyl 25 mics)
== END 2024-09-08 09:45 | disposition home or self-care (01) ==
LOC: OR 05:36 → 4FBP 09:40 → OR 09-08 09:45
PROVIDERS: ATTEND Obstetrics & Gynecology
DX: D25.1 Intramural leiomyoma of uterus (principal); N83.8 Other noninflammatory disorders of ovary, fallopian tube and broad ligament; N73.6 Female pelvic peritoneal adhesions (postinfective); I73.00 Raynaud's syndrome without gangrene; K21.9 Gastro-esophageal reflux disease without esophagitis; E03.9 Hypothyroidism, unspecified; Z98.890 Other specified postprocedural states; Z89.529 Acquired absence of unspecified knee; Z88.0 Allergy status to penicillin; Z79.890 Hormone replacement therapy; Z79.899 Other long term (current) drug therapy
CPT/HCPCS: 58571; S2900; 81025; 85025; 88307

== ENCOUNTER → 2024-11-26 | Outpatient (CLI) | payer BC ==
--- NOTE | 2024-11-26 12:00 | US ---
EXAMINATION TYPE: US thyroid st tissue head/neck DATE OF EXAM: 11/26/2024 COMPARISON: Multiple thyroid ultrasounds with most recent US 10/26/22 CLINICAL INDICATION: Female, 44 years old with history of E04.1 THYROID NODULE; Follow-up TECHNIQUE: Grayscale and color Doppler imaging of the thyroid gland. FINDINGS: GLAND SIZE: Right Lobe: 5.4 x 1.7x 1.8 cm Overall Parenchyma: homogeneous Left Lobe: 5.6 x 1.5 x 1.5 cm Overall Parenchyma: homogeneous Isthmus Thickness: 0.3 cm NODULES RIGHT: # of nodules measured on right: 1 1. 0.6 X 0.4 x 0.5 cm, mid mid, solid or almost completely solid, hypoechoic nodule, which is wider than tall, with ill-defined margins, without echogenic foci. TR 4. Prior size: 0.6 x 0.3 x 0.5 cm LEFT: # of nodules measured on left: 0 ISTHMUS: # of nodules measured in the isthmus: 0 Bilateral neck scanned, no evidence of lymphadenopathy. IMPRESSION: Mildly enlarged thyroid gland with stable subcentimeter right thyroid lobe TR for nodule. No new or e nlarging pulmonary nodules. Highest TI-RADS level nodule reported: ACR TI-RADS LEVEL: TI-RADS 4 - Moderately Suspicious: Follow if > 1 cm, FNA if > 1.5 cm TI-RADS assessment score and recommendation for follow-up based on appropriate scoring and treatment protocols. TR1 Benign No FNA TR2 Not suspicious No FNA TR3: If nodule size is ? 2.5 cm, FNA is recommended. If nodule size is ? 1.5 cm, follow-up imaging at 1, 3, and 5 years is recommended. TR4: If nodule size is ? 1.5 cm, FNA is recommended. If nodule size is ? 1.0 cm, follow-up imaging at 1, 2, 3, and 5 years is recommended. TR5: If nodule size is ? 1.0 cm, FNA is recommended. If nodule size is ? 0.5 cm, annual follow-up for up to 5 years is recommended. TR 1 thyroid nodules have a 0.3 % risk of malignancy. TR 2 thyroid nodules have a 1.5 % risk of malignancy. TR 3 thyroid nodules have a 4.8 % risk of malignancy. TR 4 thyroid nodules have a 9.1 % risk of malignancy. TR 5 thyroid nodules have a 35 % risk of malignancy. [facility], , 11/26/2024 11:58 AM
== END | disposition home or self-care (01) ==
LOC: RADUSWWP 11:01
PROVIDERS: ATTEND Pediatrics
DX: E04.1 Nontoxic single thyroid nodule (principal)
CPT/HCPCS: 76536